=== PATIENT | male | born 1965 | race Caucasian/White ===

== ENCOUNTER 2017-05-20 16:29 | Emergency (ER) | payer MEDICAID, MEDICARE ==
[2017-05-20] MEDS ORDERED: Ondansetron 4 MG/2 ML SDV IVPUSH ONE (16:43)
[2017-05-20] MEDS ORDERED: Sodium Chloride 0.9% 1,000 ML IV ONE ×2 (16:43→18:18)
--- NOTE | 2017-05-20 16:45 | EDM.PDOC ---
ED HPI GENERAL MEDICAL PROBLEM - General Stated Complaint: VOMITTING Time Seen by Provider: 05/20/17 16:29 Source of Information: Reports: Patient, Family History Limitations: Reports: No Limitations - History of Present Illness INITIAL COMMENTS - FREE TEXT/NARRATIVE: 52 y.o.w.m came with his family due to N/V/D, with the N/V was starting first. Pt c/o epigastric pain as well. Last food intake was last night a piece of turkey. No dizziness, no lightheadedness no C/P. Pt has mild RUQ abd. pain as well. BP 123/81 RR 18 Pulse ox 100% on RA Temp 36.8 Pulse 107 Onset: Today Onset Date: 05/20/17 Onset Time: 07:00 Duration: Hour(s):, Getting Worse, Intermittent Location: Reports: Abdomen Quality: Reports: Ache, Burning, Dull, Pressure, Stabbing, Throbbing Severity: Moderate Improves with: Reports: Medication Worsens with: Reports: Movement Context: Reports: Other (ate turkey yesterday) Associated Symptoms: Reports: Nausea/Vomiting - Related Data Allergies Allergy/AdvReac Type Severity Reaction Status Date / Time tramadol Allergy Dizziness Verified 05/20/17 16:38 Home Meds: Home Meds Dextroamphetamine/Amphetamine [Adderall] 30 mg PO BID 12/02/12 [History] Past Medical History - Past Health History Medical/Surgical History: Denies Medical/Surgical History Cardiovascular History: Reports: High Cholesterol Gastrointestinal History: Reports: Chronic Constipation, GERD, GI Bleed, Other ( See Below) Other Gastrointestinal History: SX OF ABDOMINAL BLOATING, CHRONIC, POSSIBLE COLON POLYPS IN PAST Genitourinary History: Reports: None SCHOOL OCCUPATIONAL THERAPIST History: Reports: None Musculoskeletal History: Reports: None Neurological History: Psychiatric History: Reports: ADD Endocrine/Metabolic History: Reports: None Dermatologic History: Reports: None - Past Surgical History GI Surgical History: Reports: Colonoscopy Musculoskeletal Surgical History: Reports: None Social & Family History - Tobacco Use Smoking Status *Q: Current Every Day Smoker Years of Tobacco use: 20 - Alcohol Use Days Per Week of Alcohol Use: 0 - Recreational Drug Use Recreational Drug Use: No ED ROS GENERAL - Review of Systems Review Of Systems: See Below Constitutional: Reports: No Symptoms HEENT: Reports: No Symptoms Respiratory: Reports: No Symptoms Cardiovascular: Reports: No Symptoms Endocrine: Reports: No Symptoms GI/Abdominal: Reports: Abdominal Pain (epigastric pain) : Reports: No Symptoms Musculoskeletal: Reports: No Symptoms Skin: Reports: No Symptoms Neurological: Reports: No Symptoms Psychiatric: Reports: No Symptoms Hematologic/Lymphatic: Reports: No Symptoms Immunologic: Reports: No Symptoms ED EXAM, GI/ABD - Physical Exam Exam: See Below Exam Limited By: No Limitations General Appearance: Alert Eyes: Bilateral: Normal Appearance Ears: Normal External Exam Nose: Normal Inspection Throat/Mouth: No Airway Compromise, Other (dry mucosal membrane) Head: Atraumatic Neck: Normal Inspection Respiratory/Chest: No Respiratory Distress, Lungs Clear, Normal Breath Sounds Cardiovascular: Normal Peripheral Pulses, Regular Rate, Rhythm GI/Abdominal Exam: Normal Bowel Sounds, Soft, Non-Tender, No Organomegaly (Male) Exam: Deferred Rectal (Males) Exam: Deferred Back Exam: Normal Inspection, Full Range of Motion Extremities: Normal Inspection, Normal Range of Motion, Non-Tender Neurological: Alert, Oriented, CN II-XII Intact, Normal Cognition, Normal Gait Psychiatric: Normal Affect, Normal Mood Skin Exam: Warm, Dry, Intact, Normal Color, No Rash Lymphatic: No Adenopathy EKG INTERPRETATION EKG Date: 05/20/17 Time: 19:00 Rhythm: NSR Rate (Beats/Min): 82 [place]: Normal P-Wave: Present QRS: Normal ST-T: Normal QT: Normal Comparison: NA - No Prior EKG Course - Vital Signs Text/Narrative:: 52 y.o.w.m came with his family due to N/V/D, with the N/V was starting first. Pt c/o epigastric pain as well. Last food intake was last night a piece of turkey. No dizziness, no lightheadedness no C/P. Pt has mild RUQ abd. pain as well. 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 Broderick at 7 pm due to shift change Last Recorded V/S: Last Vital Signs Temp 36.4 C 05/20/17 16:45 Pulse 81 05/20/17 20:15 Resp 16 05/20/17 16:45 BP 118/82 05/20/17 20:15 Pulse Ox 100 05/20/17 16:45 - Orders/Labs/Meds Orders: Active Orders 24 hr Category Date Time Status EKG Documentation Completion [RC] ASDIRECTED Care 05/20/17 18:45 Active EKG 12 Lead [EK] Routine Ther 05/20/17 18:44 Ordered Labs: Laboratory Tests 05/20/17 05/20/17 05/20/17 Range/Units 16:58 16:58 16:58 WBC 9.0 (4.5-12.0) X10-3/uL RBC 6.77 H (4.30-5.75) x10(6)uL Hgb 17.9 H (11.5-15.5) g/dL Hct 54.0 H (30.0-51.3) % MCV 79.7 L (80-96) fL MCH 26.4 L (27.7-33.6) pg MCHC 33.1 (32.2-35.4) g/dL RDW 13.9 (11.5-15.5) % Plt Count 372 H (125-369) X10(3)uL MPV 8.2 (7.4-10.4) fL Neut % (Auto) 72.6 (46-82) % Lymph % (Auto) 15.5 (13-37) % [place] % (Auto) 10.3 (4-12) % Eos % (Auto) 1 (1.0-5.0) % Baso % (Auto) 1 (0-2) % Neut # (Auto) 6.4 (1.6-8.3) # Lymph # (Auto) 1.4 (0.6-5.0) # [place]imer # (Auto) 0.9 (0.0-1.3) # Eos # (Auto) 0.1 (0.0-0.8) # Baso # (Auto) 0.1 (0.0-0.2) # Sodium 136 (135-145) mmol/L Potassium 4.1 (3.5-5.3) mmol/L Chloride 99 L (100-110) mmol/L Carbon Dioxide 23 (21-32) mmol/L BUN 28 H (7-18) mg/dL Creatinine 1.4 H (0.70-1.30) mg/dL Est Cr Clr Drug Dosing TNP Estimated GFR (MDRD) 53 L (>60) BUN/Creatinine Ratio 20.0 (9-20) Glucose 159 H (80-116) mg/dL Calcium 8.8 (8.6-10.2) mg/dL Total Bilirubin 0.4 (0.1-1.3) mg/dL Direct Bilirubin 0.10 (0.10-0.20) mg/dL AST 20 (5-25) IU/L ALT 23 (12-36) U/L Alkaline Phosphatase 108 (56-112) IU/L NT-Pro-B Natriuret Pep 13 (<=125) pg/mL Total Protein 8.4 H (6.0-8.0) g/dL Albumin 3.3 L (3.5-5.2) g/dL Amylase 39 (25-115) U/L Urine Opiates Screen (NEGATIVE) Ur Oxycodone Screen (NEGATIVE) Ur Propoxyphene Screen (NEGATIVE) Ur Barbituates Screen (NEGATIVE) Ur Tricyclics Screen (NEGATIVE) Ur Phencyclidine Scrn (NEGATIVE) Ur Amphetamine Screen (NEGATIVE) Urine MDMA Screen (NEGATIVE) U Benzodiazepines Scrn (NEGATIVE) U Cocaine Metab Screen (NEGATIVE) U Marijuana (THC) Screen (NEGATIVE) 05/20/17 Range/Units 18:10 WBC (4.5-12.0) X10-3/uL RBC (4.30-5.75) x10(6)uL Hgb (11.5-15.5) g/dL Hct (30.0-51.3) % MCV (80-96) fL MCH (27.7-33.6) pg MCHC (32.2-35.4) g/dL RDW (11.5-15.5) % Plt Count (125-369) X10(3)uL MPV (7.4-10.4) fL Neut % (Auto) (46-82) % Lymph % (Auto) (13-37) % [place] % (Auto) (4-12) % Eos % (Auto) (1.0-5.0) % Baso % (Auto) (0-2) % Neut # (Auto) (1.6-8.3) # Lymph # (Auto) (0.6-5.0) # [place] # (Auto) (0.0-1.3) # Eos # (Auto) (0.0-0.8) # Baso # (Auto) (0.0-0.2) # Sodium (135-145) mmol/L Potassium (3.5-5.3) mmol/L Chloride (100-110) mmol/L Carbon Dioxide (21-32) mmol/L BUN (7-18) mg/dL Creatinine (0.70-1.30) mg/dL Est Cr Clr Drug Dosing Estimated GFR (MDRD) (>60) BUN/Creatinine Ratio (9-20) Glucose (80-116) mg/dL Calcium (8.6-10.2) mg/dL Total Bilirubin (0.1-1.3) mg/dL Direct Bilirubin (0.10-0.20) mg/dL AST (5-25) IU/L ALT (12-36) U/L Alkaline Phosphatase (56-112) IU/L NT-Pro-B Natriuret Pep (<=125) pg/mL Total Protein (6.0-8.0) g/dL Albumin (3.5-5.2) g/dL Amylase (25-115) U/L Urine Opiates Screen Negative (NEGATIVE) Ur Oxycodone Screen Negative (NEGATIVE) Ur Propoxyphene Screen Negative (NEGATIVE) Ur Barbituates Screen Negative (NEGATIVE) Ur Tricyclics Screen Negative (NEGATIVE) Ur Phencyclidine Scrn Negative (NEGATIVE) Ur Amphetamine Screen Positive H (NEGATIVE) Urine MDMA Screen Negative (NEGATIVE) U Benzodiazepines Scrn Negative (NEGATIVE) U Cocaine Metab Screen Negative (NEGATIVE) U Marijuana (THC) Screen Negative (NEGATIVE) Meds: Medications Discontinued Medications Generic Name Dose Route Start Last Admin Trade Name Freq PRN Reason Stop Dose Admin Al Hydroxide/Mg Hydroxide 15 0 ml 05/20/17 17:24 05/20/17 17:47 ml/ Lidocaine HCl 15 ml PO 05/20/17 17:25 30 ml ONETIME ONE Administration Sodium Chloride 1,000 mls @ 999 mls/hr 05/20/17 16:43 05/20/17 17:20 Normal Saline IV 05/20/17 17:43 999 mls/hr .BOLUS ONE Administration Sodium Chloride 1,000 mls @ 999 mls/hr 05/20/17 18:18 05/20/17 18:27 Normal Saline IV 05/20/17 19:18 999 mls/hr .BOLUS ONE Administration Promethazine HCl 25 mg/ Sodium 51 mls @ 200 mls/hr 05/20/17 19:52 05/20/17 19 :59 Chloride IV 200 mls/hr Q6H PRN Administration Nausea/Vomiting Ondansetron HCl 8 mg 05/20/17 16:43 05/20/17 17:46 Zofran IVPUSH 05/20/17 16:44 8 mg ONETIME ONE Administration Ondansetron HCl Confirm 05/20/17 17:35 05/20/17 19:56 Zofran Administered 05/20/17 17:36 Not Given Dose 4 mg .ROUTE .STK-MED ONE Pantoprazole Sodium 40 mg 05/20/17 18:47 05/20/17 18:53 Protonix Iv IVPUSH 05/20/17 18:48 40 mg ONETIME ONE Administration Departure - Departure Time of Disposition: 20:00 Disposition: Home, Self-Care 01 Condition: Good Clinical Impression: Gastroenteritis - Discharge Information Instructions: Viral Gastroenteritis, Adult Referrals: Skyla Luis PA [Primary Care Provider] - (Monday if not better) Forms: ED Department Discharge 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 Use as directed - My Orders Last 24 Hours: My Active Orders 05/20/17 18:44 EKG 12 Lead [EK] Routine 05/20/17 18:45 EKG Documentation Completion [RC] ASDIRECTED - Assessment/Plan Last 24 Hours: My Active Orders 05/20/17 18:44 EKG 12 Lead [EK] Routine 05/20/17 18:45 EKG Documentation Completion [RC] ASDIRECTED
[2017-05-20] MEDS ORDERED: Alum Hydroxide/Mag Hydroxide 15 ML, Lidocaine 2% 15 ML PO ONE ×2 (17:24)
[2017-05-20] MEDS ORDERED: Ondansetron 4 MG/2 ML SDV ONE (17:35)
[2017-05-20] MEDS ORDERED: Pantoprazole 40 MG Vial IVPUSH ONE (18:47)
[2017-05-20] MEDS ORDERED: Promethazine 25 MG in Sodium Chloride 0.9% 50 ML IV PRN (19:52)
[2017-05-20] MEDS ORDERED: Ondansetron 4 MG Tab.DIS PO ONE (20:13)
[2017-05-20 20:25] VITALS: BP 118/82
--- NOTE | 2017-05-20 21:26 | ER ---
DATE SEEN: 05/20/2017 CHIEF COMPLAINT: Abdominal pain. HISTORY OF PRESENT ILLNESS: This is a 52-year-old male complaining of feeling sick to the stomach. Symptoms started on after he ate certain turkey. From that time, he has been vomiting and also having loose stools 4 times today, unable to keep anything down and has no appetite. He has abdominal discomfort that is moderate in intensity with no chest pain. REVIEW OF SYSTEMS: No shortness of breath, fever, or chills. PAST MEDICAL HISTORY: ADHD. ALLERGIES: Tramadol. SOCIAL HISTORY: Does not smoke or drink. PHYSICAL EXAMINATION: GENERAL: He is well hydrated. VITAL SIGNS: His blood pressure is 123/81, pulse 114. He is afebrile. ABDOMEN: Soft with mild tenderness in the epigastrium. Bowel sounds are increased. EXTREMITIES: No edema. CHEST: Clear. CARDIOVASCULAR: Normal. LABS: Creatinine was 1.4. Hemoglobin 17.9. Amylase was 39. EKG normal sinus rhythm. IMPRESSION: Acute gastroenteritis. PLAN: 1 L of normal saline was already given along with Zofran. I gave him Phenergan 25 mg. Discharged him home on Zofran 4 mg every 6 hours p.r.n. Advised him to bean picker the Imodium from the gas station or [place], rest the stomach tonight and start advancing diet tomorrow morning. TIME SEEN: 2000 hours. /[id number] DOUGL[place]/ENEIDA
== END 2017-05-20 20:20 | disposition home or self-care (01) ==
LOC: FB.ED 16:29
DX: K52.9 Noninfective gastroenteritis and colitis, unspecified (principal)
CPT/HCPCS: 36415; 80048; 80076; 80305; 82150; 83880; 85025; 93005; 96361; 96374; 96375; 99284; A9270-GY; C9113; J2405; J2550; J7040; J7050

== ENCOUNTER 2018-09-27 04:17 | Emergency (ER) | payer MEDICARE ==
[2018-09-27] MEDS ORDERED: Acetaminophen/HYDROcodone 325-5 MG Tab PO ONE (04:18)
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
[2018-09-27 04:39] VITALS: BP 123/73; PULSE 90
== END 2018-09-27 05:10 | disposition home or self-care (01) ==
LOC: FB.ED 04:17
DX: H16.133 Photokeratitis, bilateral (principal); E78.00 Pure hypercholesterolemia, unspecified; Z88.5 Allergy status to narcotic agent; Z79.899 Other long term (current) drug therapy
CPT/HCPCS: 99282; A9270; 99283

== ENCOUNTER → 2019-01-16 | Outpatient (CLI) | payer MEDICARE | LOC: FB.MH 08:00 | PROVIDERS: ATTEND Psychiatry & Neurology Psychiatry | DX: G31.84 Mild cognitive impairment of uncertain or unknown etiology (principal); Z87.820 Personal history of traumatic brain injury | CPT/HCPCS: 99213 ==

== ENCOUNTER 2019-02-07 21:17 | Emergency (ER) | payer MEDICARE ==
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
[2019-02-07] MEDS ORDERED: Sodium Chloride 0.9% 1,000 ML IV ONE (21:58)
[2019-02-07] MEDS ORDERED: Ondansetron 4 MG/2 ML SDV IVPUSH ONE (21:58)
[2019-02-07] MEDS ORDERED: Sodium Chloride 0.9% 10 ML Syringe FLUSH PRN (22:15)
[2019-02-07 23:01] VITALS: BP 112/69; PULSE 86
== END 2019-02-07 23:18 | disposition home or self-care (01) ==
LOC: FB.ED 21:17
DX: K52.9 Noninfective gastroenteritis and colitis, unspecified (principal); F17.210 Nicotine dependence, cigarettes, uncomplicated; Z88.6 Allergy status to analgesic agent
CPT/HCPCS: 36415; 80053; 85025; 96361; 96374; 99284; 99284-25; J2405; J7030

== ENCOUNTER 2021-06-03 23:57 | Emergency (ER) | payer MEDICARE ==
[2021-06-04] MEDS ORDERED: Sodium Chloride 0.9% 10 ML Syringe FLUSH PRN (00:26)
[2021-06-04] MEDS ORDERED: Morphine 4 MG/ML VIAL IVPUSH ONE (00:27)
[2021-06-04] MEDS ORDERED: Ondansetron 4 MG/2 ML SDV IVPUSH ONE (00:27)
[2021-06-04] MEDS ORDERED: Sodium Chloride 0.9% 1,000 ML IV SCH ×2 (00:30→02:00)
[2021-06-04] MEDS ORDERED: Pantoprazole 40 MG Vial IVPUSH STA (00:42)
[2021-06-04] MEDS ORDERED: Iopamidol 755 Mg/ML 100 ML Bottle IV ONE (01:15)
[2021-06-04 04:05] VITALS: BP 155/103; PULSE 85
== END 2021-06-04 03:44 | disposition home or self-care (01) ==
LOC: FB.ED 23:57
DX: K29.70 Gastritis, unspecified, without bleeding (principal); K21.9 Gastro-esophageal reflux disease without esophagitis; E78.00 Pure hypercholesterolemia, unspecified; E11.9 Type 2 diabetes mellitus without complications; Z88.5 Allergy status to narcotic agent; Z79.899 Other long term (current) drug therapy; Z72.0 Tobacco use
CPT/HCPCS: 36415; 74177; 80053; 81001; 82150; 82947; 83690; 85025; 96374; 96375; 99283; 99284-25; C9113; J2270; J2405; J3490; J7030; Q9967; U0002

== ENCOUNTER 2022-11-19 18:17 | Emergency (ER) | payer MEDICARE ==
[2022-11-19] MEDS: Sodium Chloride 0.9% 10 ML Syringe FLUSH PRN (18:50)
[2022-11-19] MEDS: Sodium Chloride 0.9% 1,000 ML IV SCH (18:52)
[2022-11-19] MEDS: Ondansetron 4 MG/2 ML SDV IVPUSH ONE (18:56)
[2022-11-19] MEDS: Prochlorperazine 10 MG/2 ML SDV IVPUSH ONE (18:58)
[2022-11-19 19:00] LABS: HEMATOCRIT 53.1 % (38.3-50.1); HEMOGLOBIN 17.9 g/dL (12.9-17.7); MEAN CORPUSCULAR HEMOGLOBIN 27.9 pg (27.0-33.3); MEAN CORPUSCULAR HGB CONC 33.7 g/dL (28.7-35.3); MEAN PLATELET VOLUME 8.3 fL (6.7-11.0); PLATELET COUNT,PLT 296 x10(3)uL (117-477); RED CELL DISTRIBUTION WIDTH 14.8 % (12.4-15.0); WHITE BLOOD CELL COUNT,WBC 14.3 x10-3/uL (3.2-10.1)
[2022-11-19] MEDS: Prochlorperazine 10 MG in Sodium Chloride 0.9% 50 ML IV ONE (19:01)
[2022-11-19 19:10] LABS: A/G RATIO 0.7; ALANINE AMINOTRANSFERASE,ALT 26 U/L (12-36); ALBUMIN 3.4 g/dL (3.5-5.2); ALKALINE PHOSPHATASE 116 IU/L (56-112); ASPARTATE AMNIOTRANSFERASE,AST 19 IU/L (5-25); BILIRUBIN TOTAL 0.6 mg/dL (0.1-1.3); BLOOD UREA NITROGEN,BUN 16 mg/dL (7-18); BUN/CREATININE RATIO 14.5 (9-20); CALCIUM 9.5 mg/dL (8.6-10.2); CARBON DIOXIDE,CO2 27 mmol/L (21-32); CHLORIDE,CL 101 mmol/L (100-110); CREATININE 1.1 mg/dL (0.70-1.30); EST CRCL DRUG DOSING (CG) 69.95 mL/min; ESTIMATED GFR 77 mL/min (>60); GLUCOSE RANDOM 172 mg/dL (80-116); POTASSIUM,K 4.4 mmol/L (3.5-5.3); PROTEIN TOTAL,TP 8.1 g/dL (6.0-8.0); SODIUM,NA 139 mmol/L (135-145)
[2022-11-19 19:23] LABS: BAND PERCENT MAN 5 % (0-6); LYMPHOCYTES PERCENT MAN 12 % (13-37); MONOCYTES PERCENT MAN 5 % (4-12); SEG NEUTROPHILS PERCENT MAN 78 % (46-82)
[2022-11-19 19:37] LABS: INFLUENZA A NAA NEGATIVE (NEGATIVE); INFLUENZA B NAA NEGATIVE (NEGATIVE)
[2022-11-19 19:42] LABS: CORONAVIRUS COVID-19 NAA NEGATIVE (NEGATIVE)
[2022-11-19] MEDS ORDERED: Ondansetron 4 MG Tab.DIS PO ONE (19:44)
[2022-11-19 19:58] VITALS: BP 119/80; PULSE 95
== END 2022-11-19 19:58 | disposition home or self-care (01) ==
LOC: FB.ED 18:17 → MERGE 18:17 → FB.ED 19:58
DX: K52.9 Noninfective gastroenteritis and colitis, unspecified (principal); Z20.822 Contact with and (suspected) exposure to COVID-19
CPT/HCPCS: 0240U; 80053; 85025; 96361; 96374; 96375; 99283; 99284-25; J0780; J2405; J3490; J7030; Q0162